=== PATIENT | female | born 1980 | race Two or more races ===

== ENCOUNTER 2021-11-27 07:21 | Inpatient (IN) | payer MEDICAID, OTHER ==
[~2021-11-27] VITALS: Ht 162.6 cm; Wt 94.2 kg
[2021-11-27 09:58] LABS: Albumin 1.8 g/dL (3.4-5.0); Calcium 7.1 mg/dL (8.5-10.1); Potassium 3.1 mmol/L (3.5-5.1)
[2021-11-27 10:01] LABS: BUN/Creatinine Ratio 5.4; Bilirubin, Total 18.9 mg/dL (0.2-1.0); Total Protein 6.6 g/dL (6.4-8.2)
[2021-11-27 10:36] LABS: Basophils # (auto) 0 10 ^3/uL (0-0.2); Basophils % (auto) 0.2 % (0.0-2.0); Eosinophils # (auto) 0.1 10 ^3/uL (0-0.8); Eosinophils % (auto) 0.4 % (0.0-7.0); Hematocrit 35.4 % (36.0-46.0); Hemoglobin 11.9 g/dL (12.2-16.2); Lymphocytes % (auto) 6.1 % (10.0-50.0); Mean Corpuscular Hemoglobin 34.4 pg (28.0-32.0); Mean Corpuscular Hgb Conc. 33.5 g/dL (32.0-36.0); Mean Corpuscular Volume 102.7 fL (80.0-100.0); Monocytes # (auto) 0.9 10 ^3/uL (0-1.3); Monocytes % (auto) 5.7 % (0.0-12.0); Neutrophils # (auto) 13.7 10 ^3/uL (1.6-8.6); Neutrophils % (auto) 87.6 % (37.0-80.0); Nucleated Red Blood Cells % 0.1 %; Red Blood Cells 3.45 10^6/uL (4.0-5.20); Red Cell Distribution Width 14.6 % (11.8-14.3); White Blood Cell 15.6 10^3/uL (4.4-10.8)
[2021-11-27] MEDS ORDERED: SODIUM CHLORIDE 0.9% 1,000 ML IV ONE (11:15)
[2021-11-27 11:29] LABS: Urine Bacteria MOD /hpf (None Seen); Urine Blood Negative /uL (Negative); Urine Mucus FEW (None Seen); Urine Specific Gravity 1.017 (1.001-1.035); Urine WBC 12 /hpf (0 - 5)
[2021-11-27 12:27] LABS: INR 2.07 (0.9-1.15); Partial Thromboplastin Time 44.8 sec (24.6-33.4)
[2021-11-27] MEDS ORDERED: ALBUMIN 25% 100 ML IV ONE (13:45)
[2021-11-27] MEDS ORDERED: LACTULOSE 20Gm/30ML SOLN PO ONE (13:45)
[2021-11-27] MEDS: FUROSEMIDE 40 MG/4 ML VIAL IV ONE ×2 (13:45→22:28)
[2021-11-27] MEDS: MAGNESIUM SULFATE 1GM/100ML 100 ML IV SCH ×5 (13:45→23:39)
[2021-11-27] MEDS ORDERED: POTASSIUM EFFERVESENT TAB 25 MEQ PO ONE (16:00)
[2021-11-27] MEDS ORDERED: LORazepam 2MG/ML-1ML VIAL IV PRN (17:30)
[2021-11-27] MEDS: SPIRONOLACTONE 25 MG TAB PO ONE (17:45)
[2021-11-27 18:24] LABS: INR 2.02 (0.9-1.15)
[2021-11-27 18:36] LABS: Cholesterol 86 mg/dL (< 200); HDL Cholesterol 9 mg/dL (40-59); LDL Cholesterol 78 mg/dL (< 100); Triglycerides 289 mg/dL (< 150)
[2021-11-27 19:46] LABS: Alcohol, Urine < 3.0 mg/dL (0-10); Amphetamine Screen, Urine NEGATIVE (NEGATIVE); Barbiturate Scree,Urine NEGATIVE (NEGATIVE); Benzodiazephine Screen, Urine NEGATIVE (NEGATIVE); Cannabinoid Screen, Urine NEGATIVE (NEGATIVE); Cocaine Screen, Urine NEGATIVE (NEGATIVE); Opiate Scree,Urine NEGATIVE (NEGATIVE); Phencyclidine Screen, Urine NEGATIVE (NEGATIVE)
[2021-11-27 21:20] VITALS: BP 102/58
[2021-11-27] MEDS: SODIUM CHLORIDE 0.9% 1,000 ML IV SCH (22:25)
[2021-11-27] MEDS: MORPHINE SULFATE INJ 2 MG/ml SYRG IV PRN (22:28)
[2021-11-27] MEDS: FOLIC ACID 1 MG, MULTIPLE VITAMIN 10 ML, MAGNESIUM SULF SDV 50% 8 MEQ, THIAMINE INJ 100... INJ SCH ×5 (22:28)
[2021-11-28] VITALS (8 sets, daily range): BP systolic 92–112; BP diastolic 46–70
[2021-11-28] MEDS: MAGNESIUM SULFATE 1GM/100ML 100 ML IV SCH ×2 (00:38→01:36)
[2021-11-28] MEDS: ALBUMIN 25% 50 ML IV SCH ×3 (02:27→17:37)
[2021-11-28] MEDS: SODIUM CHLORIDE 0.9% 1,000 ML IV SCH (03:30)
[2021-11-28 06:03] LABS: Calcium 6.8 mg/dL (8.5-10.1); Eosinophils # (auto) 0.1 10 ^3/uL (0-0.8); Hemoglobin 10.2 g/dL (12.2-16.2); White Blood Cell 13.3 10^3/uL (4.4-10.8)
[2021-11-28 06:06] LABS: Basophils # (auto) 0 10 ^3/uL (0-0.2); Basophils % (auto) 0.3 % (0.0-2.0); Eosinophils % (auto) 0.4 % (0.0-7.0); Hematocrit 29.5 % (36.0-46.0); Lymphocytes # (auto) 0.9 10 ^3/uL (0.4-5.4); Lymphocytes % (auto) 7.1 % (10.0-50.0); Mean Corpuscular Hgb Conc. 34.5 g/dL (32.0-36.0); Mean Corpuscular Volume 101.4 fL (80.0-100.0); Monocytes # (auto) 1.2 10 ^3/uL (0-1.3); Monocytes % (auto) 9.1 % (0.0-12.0); Neutrophils # (auto) 11.1 10 ^3/uL (1.6-8.6); Neutrophils % (auto) 83.1 % (37.0-80.0); Red Cell Distribution Width 14.8 % (11.8-14.3)
[2021-11-28 06:09] LABS: Albumin 2.1 g/dL (3.4-5.0); BUN/Creatinine Ratio 8.7; Bilirubin, Total 17.7 mg/dL (0.2-1.0); Total Protein 5.8 g/dL (6.4-8.2)
[2021-11-28 06:42] LABS: Potassium 2.4 mmol/L (3.5-5.1)
[2021-11-28] MEDS ORDERED: FUROSEMIDE 20 MG/2 ML VIAL IV SCH (10:00)
[2021-11-28] MEDS: POTASSIUM CHL 20MEQ/100ML 100 ML IV SCH ×3 (10:13→14:07)
[2021-11-28] MEDS: POTASSIUM CHL 10 Meq TABLET PO SCH (10:13)
[2021-11-28] MEDS: chlordiazePOXIDE HCL 5 MG CAP PO PRN ×2 (10:44→16:00)
[2021-11-28] MEDS ORDERED: PHYTONADIONE (VIT K)10 MG/ML 1ML VIAL IV ONE (10:45)
[2021-11-28 13:46] LABS: Calcium 7.3 mg/dL (8.5-10.1)
[2021-11-28 13:48] LABS: BUN/Creatinine Ratio 7.7
[2021-11-28 13:55] LABS: Potassium 2.8 mmol/L (3.5-5.1)
[2021-11-28] MEDS: MORPHINE SULFATE INJ 2 MG/ml SYRG IV PRN ×2 (16:00→21:39)
[2021-11-28] MEDS: FOLIC ACID 1 MG, MULTIPLE VITAMIN 10 ML, MAGNESIUM SULF SDV 50% 8 MEQ, THIAMINE INJ 100... INJ SCH ×5 (16:04)
[2021-11-28 22:59] LABS: Magnesium 2.9 mg/dL (1.6-2.6)
[2021-11-28 23:37] LABS: Potassium 2.9 mmol/L (3.5-5.1)
[2021-11-29] VITALS (14 sets, daily range): BP systolic 93–125; BP diastolic 61–77
[2021-11-29] MEDS ORDERED: POTASSIUM CHL 20MEQ/100ML 100 ML IV ONE (00:15)
[2021-11-29] MEDS ORDERED: POTASSIUM CHL 20 Meq TABLET PO ONE (00:15)
[2021-11-29] MEDS: chlordiazePOXIDE HCL 5 MG CAP PO PRN ×3 (02:41→21:13)
[2021-11-29 06:18] LABS: Albumin 2.5 g/dL (3.4-5.0); Potassium 3.3 mmol/L (3.5-5.1)
[2021-11-29 06:21] LABS: BUN/Creatinine Ratio 8.3; Bilirubin, Total 19.4 mg/dL (0.2-1.0); Total Protein 6.3 g/dL (6.4-8.2)
[2021-11-29 06:30] LABS: Basophils # (auto) 0.1 10 ^3/uL (0-0.2); Basophils % (auto) 0.5 % (0.0-2.0); Hemoglobin 10.3 g/dL (12.2-16.2)
[2021-11-29 06:38] LABS: Eosinophils # (auto) 0.1 10 ^3/uL (0-0.8); Eosinophils % (auto) 0.5 % (0.0-7.0); Hematocrit 30.1 % (36.0-46.0); Lymphocytes # (auto) 1.1 10 ^3/uL (0.4-5.4); Lymphocytes % (auto) 7.7 % (10.0-50.0); Mean Corpuscular Hemoglobin 35.2 pg (28.0-32.0); Mean Corpuscular Hgb Conc. 34.1 g/dL (32.0-36.0); Mean Corpuscular Volume 103.3 fL (80.0-100.0); Monocytes # (auto) 1.4 10 ^3/uL (0-1.3); Monocytes % (auto) 9.9 % (0.0-12.0); Neutrophils # (auto) 11.3 10 ^3/uL (1.6-8.6); Neutrophils % (auto) 81.4 % (37.0-80.0); Red Blood Cells 2.92 10^6/uL (4.0-5.20); Red Cell Distribution Width 15.5 % (11.8-14.3); White Blood Cell 13.9 10^3/uL (4.4-10.8)
[2021-11-29 07:14] LABS: INR 1.44 (0.9-1.15)
[2021-11-29] MEDS: POTASSIUM CHL 10 Meq TABLET PO SCH (09:44)
[2021-11-29] MEDS: MORPHINE SULFATE INJ 2 MG/ml SYRG IV PRN ×3 (10:23→21:13)
[2021-11-29 12:44] LABS: Hepatitis A Ab IgM Negative
[2021-11-29 12:45] LABS: Hepatitis B Core IgM Negative
[2021-11-29 12:47] LABS: Hepatitis C Antibody Negative (Negative)
[2021-11-29] MEDS: FOLIC ACID 1 MG, MULTIPLE VITAMIN 10 ML, MAGNESIUM SULF SDV 50% 8 MEQ, THIAMINE INJ 100... INJ SCH ×5 (12:49)
[2021-11-29] MEDS ORDERED: cefTRIAXone 1GM/50ML D5W 50 ML IV ONE (13:00)
[2021-11-29] MEDS: PANTOPRAZOLE 40 MG TAB PO SCH (17:16)
[2021-11-30] MEDS: MORPHINE SULFATE INJ 2 MG/ml SYRG IV PRN ×4 (03:34→21:23)
[2021-11-30 05:00] VITALS: BP 105/71
[2021-11-30] MEDS: cefTRIAXone 1GM/50ML D5W 50 ML IV SCH (08:46)
[2021-11-30 09:00] VITALS: BP 109/70
[2021-11-30] MEDS: POTASSIUM CHL 10 Meq TABLET PO SCH (09:12)
[2021-11-30] MEDS: PANTOPRAZOLE 40 MG TAB PO SCH ×2 (09:12→21:22)
[2021-11-30] MEDS: FOLIC ACID 1 MG, MULTIPLE VITAMIN 10 ML, MAGNESIUM SULF SDV 50% 8 MEQ, THIAMINE INJ 100... INJ SCH ×5 (12:03)
[2021-11-30 13:04] VITALS: BP 112/71
[2021-11-30 17:04] VITALS: BP 108/69
[2021-11-30] MEDS: chlordiazePOXIDE HCL 5 MG CAP PO PRN (21:22)
[2021-11-30 22:00] VITALS: BP 121/79
[2021-12-01 05:00] VITALS: BP 108/75
[2021-12-01] MEDS: MORPHINE SULFATE INJ 2 MG/ml SYRG IV PRN ×5 (05:51→23:00)
[2021-12-01 08:39] VITALS: BP 104/72
[2021-12-01 08:40] LABS: Eosinophils # (auto) 0.1 10 ^3/uL (0-0.8); Hemoglobin 11.3 g/dL (12.2-16.2); Mean Corpuscular Hemoglobin 34.9 pg (28.0-32.0); Red Blood Cells 3.25 10^6/uL (4.0-5.20)
[2021-12-01 08:42] LABS: Basophils # (auto) 0.1 10 ^3/uL (0-0.2); Basophils % (auto) 0.7 % (0.0-2.0); Eosinophils % (auto) 0.4 % (0.0-7.0); Hematocrit 33.6 % (36.0-46.0); Lymphocytes # (auto) 1.4 10 ^3/uL (0.4-5.4); Lymphocytes % (auto) 8.7 % (10.0-50.0); Mean Corpuscular Hgb Conc. 33.7 g/dL (32.0-36.0); Mean Corpuscular Volume 103.3 fL (80.0-100.0); Monocytes # (auto) 1.3 10 ^3/uL (0-1.3); Monocytes % (auto) 8.3 % (0.0-12.0); Neutrophils # (auto) 13.1 10 ^3/uL (1.6-8.6); Neutrophils % (auto) 81.9 % (37.0-80.0); Nucleated Red Blood Cells % 0.1 %; Red Cell Distribution Width 15.8 % (11.8-14.3); White Blood Cell 16.1 10^3/uL (4.4-10.8)
[2021-12-01 08:56] LABS: Albumin 2.1 g/dL (3.4-5.0); Calcium 7.6 mg/dL (8.5-10.1); Potassium 3.5 mmol/L (3.5-5.1)
[2021-12-01 08:59] LABS: BUN/Creatinine Ratio 4.9; Bilirubin, Total 22.3 mg/dL (0.2-1.0); Total Protein 6.3 g/dL (6.4-8.2)
[2021-12-01] MEDS: cefTRIAXone 1GM/50ML D5W 50 ML IV SCH (09:25)
[2021-12-01] MEDS: chlordiazePOXIDE HCL 5 MG CAP PO PRN ×2 (09:25→20:45)
[2021-12-01] MEDS: POTASSIUM CHL 10 Meq TABLET PO SCH (09:26)
[2021-12-01] MEDS: PANTOPRAZOLE 40 MG TAB PO SCH ×2 (09:26→22:33)
[2021-12-01] MEDS ORDERED: IOHEXOL 300 MG/ML 100ML BOTTLE IJ ONE (11:56)
[2021-12-01 13:15] VITALS: BP 96/64
[2021-12-01] MEDS: FOLIC ACID 1 MG, MULTIPLE VITAMIN 10 ML, MAGNESIUM SULF SDV 50% 8 MEQ, THIAMINE INJ 100... INJ SCH ×5 (13:31)
[2021-12-01] MEDS: SIMETHICONE 40 MG/0.6 ML ORAL DROP PO SCH ×3 (13:32→22:33)
[2021-12-01 16:44] VITALS: BP 102/65
[2021-12-01 22:00] VITALS: BP 103/69
[2021-12-02] MEDS: SIMETHICONE 40 MG/0.6 ML ORAL DROP PO SCH ×4 (05:46→22:01)
[2021-12-02] MEDS: MORPHINE SULFATE INJ 2 MG/ml SYRG IV PRN ×4 (05:55→22:07)
[2021-12-02] MEDS: chlordiazePOXIDE HCL 5 MG CAP PO PRN (06:08)
[2021-12-02] MEDS ORDERED: PHYTONADIONE (VIT K)10 MG/ML 1ML VIAL SUBCUT ONE (08:45)
[2021-12-02 08:59] VITALS: BP 108/67
[2021-12-02] MEDS: cefTRIAXone 1GM/50ML D5W 50 ML IV SCH (09:00)
[2021-12-02] MEDS: POTASSIUM CHL 10 Meq TABLET PO SCH (10:00)
[2021-12-02] MEDS: PANTOPRAZOLE 40 MG TAB PO SCH ×2 (10:00→22:00)
[2021-12-02 10:21] LABS: INR 1.53 (0.9-1.15); Partial Thromboplastin Time 44.1 sec (24.6-33.4)
[2021-12-02] MEDS: FOLIC ACID 1 MG, MULTIPLE VITAMIN 10 ML, MAGNESIUM SULF SDV 50% 8 MEQ, THIAMINE INJ 100... INJ SCH ×5 (12:00)
[2021-12-02 13:44] VITALS: BP 110/70
[2021-12-02] MEDS: traMADol HCL 50 MG TAB PO PRN (13:55)
[2021-12-02] MEDS: metroNIDAZOLE 500MG/100ML 100 ML IV SCH ×2 (15:05→22:00)
[2021-12-02 16:21] VITALS: BP 111/73
[2021-12-02 21:41] VITALS: BP 103/69
[2021-12-03] MEDS: MORPHINE SULFATE INJ 2 MG/ml SYRG IV PRN ×4 (03:42→21:29)
[2021-12-03 05:00] VITALS: BP 103/68
[2021-12-03] MEDS: metroNIDAZOLE 500MG/100ML 100 ML IV SCH ×3 (05:37→22:18)
[2021-12-03] MEDS: SIMETHICONE 40 MG/0.6 ML ORAL DROP PO SCH ×4 (05:37→22:00)
[2021-12-03] MEDS ORDERED: GADOTERATE MEG 10 MMOL/20ml INJ (0.5MMOL/ml) IV ONE (08:41)
[2021-12-03] MEDS: POTASSIUM CHL 10 Meq TABLET PO SCH (08:43)
[2021-12-03] MEDS: cefTRIAXone 1GM/50ML D5W 50 ML IV SCH (08:43)
[2021-12-03] MEDS: PANTOPRAZOLE 40 MG TAB PO SCH ×2 (08:44→22:18)
[2021-12-03 09:00] VITALS: BP 104/69
[2021-12-03] MEDS: FOLIC ACID 1 MG, MULTIPLE VITAMIN 10 ML, MAGNESIUM SULF SDV 50% 8 MEQ, THIAMINE INJ 100... INJ SCH ×5 (12:00)
[2021-12-03 13:15] VITALS: BP 94/52
[2021-12-03] MEDS: PENTOXIFYLLINE 400 MG ER TAB PO SCH ×2 (16:53→22:19)
[2021-12-03 17:09] VITALS: BP 108/54
[2021-12-03 22:00] VITALS: BP_SYST 112
[2021-12-04] MEDS: traMADol HCL 50 MG TAB PO PRN ×2 (00:20→11:14)
[2021-12-04] MEDS: MORPHINE SULFATE INJ 2 MG/ml SYRG IV PRN ×3 (03:42→15:45)
[2021-12-04 05:59] VITALS: BP 105/69
[2021-12-04] MEDS: SIMETHICONE 40 MG/0.6 ML ORAL DROP PO SCH ×4 (06:00→23:29)
[2021-12-04] MEDS: PENTOXIFYLLINE 400 MG ER TAB PO SCH ×3 (06:28→23:30)
[2021-12-04] MEDS: metroNIDAZOLE 500MG/100ML 100 ML IV SCH ×3 (06:28→23:29)
[2021-12-04 09:00] VITALS: BP 109/70
[2021-12-04] MEDS: cefTRIAXone 1GM/50ML D5W 50 ML IV SCH (09:01)
[2021-12-04] MEDS: POTASSIUM CHL 10 Meq TABLET PO SCH (09:02)
[2021-12-04] MEDS: PANTOPRAZOLE 40 MG TAB PO SCH ×2 (09:02→23:29)
[2021-12-04] MEDS: ONDANSETRON HCL 4 MG/2 ML VIAL IV PRN (09:03)
[2021-12-04] MEDS: chlordiazePOXIDE HCL 5 MG CAP PO PRN (11:14)
[2021-12-04 13:00] VITALS: BP 104/72
[2021-12-04] MEDS: FOLIC ACID 1 MG, MULTIPLE VITAMIN 10 ML, MAGNESIUM SULF SDV 50% 8 MEQ, THIAMINE INJ 100... INJ SCH ×5 (14:27)
[2021-12-04 17:00] VITALS: BP 111/67
[2021-12-05] MEDS: MORPHINE SULFATE INJ 2 MG/ml SYRG IV PRN ×4 (00:03→18:03)
[2021-12-05 06:08] VITALS: BP 102/60
[2021-12-05] MEDS: metroNIDAZOLE 500MG/100ML 100 ML IV SCH ×3 (06:15→22:52)
[2021-12-05] MEDS: PENTOXIFYLLINE 400 MG ER TAB PO SCH ×3 (06:16→22:53)
[2021-12-05] MEDS: SIMETHICONE 40 MG/0.6 ML ORAL DROP PO SCH ×4 (06:16→22:53)
[2021-12-05 06:41] LABS: Albumin 1.9 g/dL (3.4-5.0); Calcium 8.2 mg/dL (8.5-10.1); Potassium 4.2 mmol/L (3.5-5.1)
[2021-12-05 06:44] LABS: BUN/Creatinine Ratio 13.2
[2021-12-05 06:58] LABS: Bilirubin, Total 20.8 mg/dL (0.2-1.0); Total Protein 5.6 g/dL (6.4-8.2)
[2021-12-05 09:00] VITALS: BP 98/50
[2021-12-05] MEDS: cefTRIAXone 1GM/50ML D5W 50 ML IV SCH (10:30)
[2021-12-05] MEDS: PANTOPRAZOLE 40 MG TAB PO SCH ×2 (10:30→22:53)
[2021-12-05] MEDS: POTASSIUM CHL 10 Meq TABLET PO SCH (10:31)
[2021-12-05] MEDS: ONDANSETRON HCL 4 MG/2 ML VIAL IV PRN ×2 (10:39→18:02)
[2021-12-05 13:00] VITALS: BP 94/59
[2021-12-05] MEDS: FOLIC ACID 1 MG, MULTIPLE VITAMIN 10 ML, MAGNESIUM SULF SDV 50% 8 MEQ, THIAMINE INJ 100... INJ SCH ×5 (13:13)
[2021-12-05 17:00] VITALS: BP 122/60
[2021-12-06 00:15] VITALS: BP 101/61
[2021-12-06] MEDS: MORPHINE SULFATE INJ 2 MG/ml SYRG IV PRN (02:24)
[2021-12-06] MEDS: SIMETHICONE 40 MG/0.6 ML ORAL DROP PO SCH ×2 (06:17→13:20)
[2021-12-06] MEDS: PENTOXIFYLLINE 400 MG ER TAB PO SCH ×2 (06:17→13:20)
[2021-12-06] MEDS: metroNIDAZOLE 500MG/100ML 100 ML IV SCH ×2 (06:17→13:20)
[2021-12-06 06:18] VITALS: BP_SYST 139; BP_SYST 95; BP_DIAS 57; BP_DIAS 59
[2021-12-06 09:00] VITALS: BP 99/64
[2021-12-06] MEDS ORDERED: KETOROLAC TROMETH 30 MG/ML 1ML VIAL IV PRN (09:30)
[2021-12-06] MEDS: cefTRIAXone 1GM/50ML D5W 50 ML IV SCH (10:02)
[2021-12-06] MEDS: POTASSIUM CHL 10 Meq TABLET PO SCH (10:02)
[2021-12-06] MEDS: PANTOPRAZOLE 40 MG TAB PO SCH (10:02)
[2021-12-06 13:00] VITALS: BP 99/65
[2021-12-06] MEDS: FOLIC ACID 1 MG, MULTIPLE VITAMIN 10 ML, MAGNESIUM SULF SDV 50% 8 MEQ, THIAMINE INJ 100... INJ SCH ×5 (15:39)
== END 2021-12-06 17:20 | disposition left against medical advice (07) | DRG 871 ==
LOC: EDBD 07:21 → ER 07:21 → OVERFLOW 17:16 → EDBD 17:16 → CENTRAL 21:20
PROVIDERS: ADMIT Registered Nurse; ATTEND Family Medicine
PROC: 30233K1 Transfusion of Nonautologous Frozen Plasma into Peripheral Vein, Percutaneous Approach (ICD-10-PCS; principal; 2021-11-28)
DX: A41.9 Sepsis, unspecified organism (principal); E43 Unspecified severe protein-calorie malnutrition; D68.9 Coagulation defect, unspecified; E87.1 Hypo-osmolality and hyponatremia; J90 Pleural effusion, not elsewhere classified; E72.4 Disorders of ornithine metabolism; F10.139 Alcohol abuse with withdrawal, unspecified; K70.31 Alcoholic cirrhosis of liver with ascites; D75.89 Other specified diseases of blood and blood-forming organs; E83.42 Hypomagnesemia; E87.6 Hypokalemia; K44.9 Diaphragmatic hernia without obstruction or gangrene; Z20.822 Contact with and (suspected) exposure to COVID-19; E80.6 Other disorders of bilirubin metabolism; R74.01 Elevation of levels of liver transaminase levels; F12.90 Cannabis use, unspecified, uncomplicated; Y90.9 Presence of alcohol in blood, level not specified; D72.829 Elevated white blood cell count, unspecified; R97.1 Elevated cancer antigen 125 [CA 125]; Z53.29 Procedure and treatment not carried out because of patient's decision for other reasons; Z86.32 Personal history of gestational diabetes; Z79.899 Other long term (current) drug therapy; Z90.710 Acquired absence of both cervix and uterus; Z68.35 Body mass index [BMI] 35.0-35.9, adult
CPT/HCPCS: 36415; 36430; 71046; 71275; 72195; 74176; 74178; 74181; 76700; 76856; 80048; 80053; 80061; 80074; 80307; 80320; 81001; 82105; 82140; 82150; 82378; 83036; 83690; 83735; 84132; 84484; 84702; 85025; 85610; 85730; 86304; 86850; 86900; 86901; 87040; 93005; 96361; 96374; G0378; J0696; J1885; J2405; J3430; J3480; J3490; P9047

== ENCOUNTER 2022-04-28 | Inpatient (IN) | payer MEDICAID ==
[~2022-04-28] VITALS: Ht 165.1 cm; Wt 79.6 kg
[2022-04-28] MEDS ORDERED: HYDROmorphone HCL 2 MG/ML VL/or syr IV ONE (09:00)
[2022-04-28] MEDS ORDERED: ONDANSETRON HCL 4 MG/2 ML VIAL IV ONE (09:00)
[2022-04-28 09:17] LABS: Basophils # (auto) 0 10 ^3/uL (0-0.2); Basophils % (auto) 0.4 % (0.0-2.0); Eosinophils # (auto) 0 10 ^3/uL (0-0.8); Eosinophils % (auto) 0.7 % (0.0-7.0); Hematocrit 33.8 % (36.0-46.0); Hemoglobin 11.2 g/dL (12.2-16.2); Lymphocytes # (auto) 1.6 10 ^3/uL (0.4-5.4); Lymphocytes % (auto) 33.4 % (10.0-50.0); Mean Corpuscular Hemoglobin 33.8 pg (28.0-32.0); Mean Corpuscular Hgb Conc. 33.3 g/dL (32.0-36.0); Mean Corpuscular Volume 101.4 fL (80.0-100.0); Monocytes # (auto) 0.4 10 ^3/uL (0-1.3); Monocytes % (auto) 7.9 % (0.0-12.0); Neutrophils # (auto) 2.8 10 ^3/uL (1.6-8.6); Neutrophils % (auto) 57.6 % (37.0-80.0); Nucleated Red Blood Cells % 0.1 %; Red Blood Cells 3.33 10^6/uL (4.0-5.20); Red Cell Distribution Width 15.6 % (11.8-14.3); White Blood Cell 4.8 10^3/uL (4.4-10.8)
[2022-04-28 09:32] LABS: Albumin 3.1 g/dL (3.4-5.0); Calcium 8.6 mg/dL (8.5-10.1); Potassium 3.8 mmol/L (3.5-5.1)
[2022-04-28 09:35] LABS: BUN/Creatinine Ratio 22.7; Bilirubin, Total 3.4 mg/dL (0.2-1.0)
[2022-04-28 11:57] LABS: INR 1.27 (0.9-1.15)
[2022-04-28 12:16] LABS: Hematocrit 33.1 % (36.0-46.0); Hemoglobin 11.2 g/dL (12.2-16.2)
[2022-04-28] MEDS: SODIUM CHLORIDE 0.9% 1,000 ML IV SCH (14:00)
[2022-04-28] MEDS: metroNIDAZOLE 500MG/100ML 100 ML IV SCH ×2 (14:12→22:17)
[2022-04-28] MEDS: FOLIC ACID 1 MG, MULTIPLE VITAMIN 10 ML, MAGNESIUM SULF SDV 50% 8 MEQ, THIAMINE INJ 100... INJ SCH ×5 (14:18)
[2022-04-28] MEDS ORDERED: OMEP20TA PO (16:51)
[2022-04-28] MEDS ORDERED: FURO40TA4 PO (16:51)
[2022-04-28] MEDS ORDERED: SPIR100T4 PO (16:51)
[2022-04-28] MEDS: ONDANSETRON HCL 4 MG/2 ML VIAL IV PRN (17:14)
[2022-04-28] MEDS: MORPHINE SULFATE INJ 2 MG/ml SYRG IV PRN ×2 (18:08→23:33)
[2022-04-28 18:19] LABS: Hematocrit 31.9 % (36.0-46.0); Hemoglobin 10.7 g/dL (12.2-16.2)
[2022-04-28 18:32] LABS: Urine Bacteria FEW /hpf (None Seen); Urine Blood Negative /uL (Negative); Urine Hyaline Cast FEW /lpf (0 - 2); Urine Mucus FEW (None Seen); Urine Specific Gravity 1.018 (1.001-1.035); Urine WBC 13 /hpf (0 - 5)
[2022-04-28 22:00] VITALS: BP 104/65
[2022-04-28] MEDS: PANTOPRAZOLE 40 MG/10 ML VIAL INJ IV SCH (22:16)
[2022-04-28 22:53] VITALS: BP 121/76
[2022-04-29 00:59] LABS: Hematocrit 31.5 % (36.0-46.0); Hemoglobin 10.3 g/dL (12.2-16.2)
[2022-04-29] MEDS: SODIUM CHLORIDE 0.9% 1,000 ML IV SCH (01:33)
[2022-04-29 05:00] VITALS: BP 105/50
[2022-04-29 06:05] LABS: Basophils # (auto) 0 10 ^3/uL (0-0.2); Basophils % (auto) 0.5 % (0.0-2.0); Eosinophils # (auto) 0.1 10 ^3/uL (0-0.8); Eosinophils % (auto) 1.3 % (0.0-7.0); Hematocrit 30.3 % (36.0-46.0); Hemoglobin 10.4 g/dL (12.2-16.2); Lymphocytes # (auto) 1.8 10 ^3/uL (0.4-5.4); Lymphocytes % (auto) 33.7 % (10.0-50.0); Mean Corpuscular Hemoglobin 34.9 pg (28.0-32.0); Mean Corpuscular Hgb Conc. 34.5 g/dL (32.0-36.0); Mean Corpuscular Volume 101.3 fL (80.0-100.0); Monocytes # (auto) 0.5 10 ^3/uL (0-1.3); Monocytes % (auto) 8.8 % (0.0-12.0); Neutrophils % (auto) 55.7 % (37.0-80.0); Nucleated Red Blood Cells % 0.1 %; Red Blood Cells 2.99 10^6/uL (4.0-5.20); Red Cell Distribution Width 15.4 % (11.8-14.3); White Blood Cell 5.4 10^3/uL (4.4-10.8)
[2022-04-29] MEDS: metroNIDAZOLE 500MG/100ML 100 ML IV SCH (06:11)
[2022-04-29 06:40] LABS: Potassium 3.7 mmol/L (3.5-5.1)
[2022-04-29 06:57] LABS: Albumin 2.4 g/dL (3.4-5.0); Bilirubin, Total 3.7 mg/dL (0.2-1.0); Calcium 8.4 mg/dL (8.5-10.1); Total Protein 5.6 g/dL (6.4-8.2)
[2022-04-29 09:00] VITALS: BP 100/63
[2022-04-29] MEDS ORDERED: PANTOPRAZOLE 40 MG/10 ML VIAL INJ IV SCH (10:00)
[2022-04-29] MEDS: cefTRIAXone 1GM/50ML D5W 50 ML IV SCH (10:30)
[2022-04-29] MEDS: PANTOPRAZOLE 40 MG/10 ML VIAL INJ IV SCH (10:30)
[2022-04-29] MEDS: MORPHINE SULFATE INJ 2 MG/ml SYRG IV PRN ×3 (10:32→23:41)
[2022-04-29 12:20] LABS: Hematocrit 31.3 % (36.0-46.0); Hemoglobin 10.1 g/dL (12.2-16.2)
[2022-04-29] MEDS: FOLIC ACID 1 MG, MULTIPLE VITAMIN 10 ML, MAGNESIUM SULF SDV 50% 8 MEQ, THIAMINE INJ 100... INJ SCH ×5 (12:21)
[2022-04-29 13:00] VITALS: BP 98/65
[2022-04-29 17:00] VITALS: BP 91/53
[2022-04-29 18:20] LABS: Hematocrit 29.4 % (36.0-46.0)
[2022-04-29 18:27] LABS: Hemoglobin 9.9 g/dL (12.2-16.2)
[2022-04-29 22:00] VITALS: BP 98/60
[2022-04-30 05:00] VITALS: BP 86/48
[2022-04-30] MEDS ORDERED: DOCUSATE SOD 100 MG CAP PO PRN (06:45)
[2022-04-30 06:55] LABS: Basophils # (auto) 0 10 ^3/uL (0-0.2); Basophils % (auto) 0.4 % (0.0-2.0); Eosinophils # (auto) 0.1 10 ^3/uL (0-0.8); Eosinophils % (auto) 1.4 % (0.0-7.0); Hematocrit 31.2 % (36.0-46.0); Hemoglobin 10.6 g/dL (12.2-16.2); Lymphocytes # (auto) 1.7 10 ^3/uL (0.4-5.4); Lymphocytes % (auto) 36.6 % (10.0-50.0); Mean Corpuscular Hemoglobin 33.7 pg (28.0-32.0); Mean Corpuscular Hgb Conc. 33.9 g/dL (32.0-36.0); Mean Corpuscular Volume 99.3 fL (80.0-100.0); Monocytes # (auto) 0.4 10 ^3/uL (0-1.3); Monocytes % (auto) 9.1 % (0.0-12.0); Neutrophils # (auto) 2.5 10 ^3/uL (1.6-8.6); Neutrophils % (auto) 52.5 % (37.0-80.0); Nucleated Red Blood Cells % 0.3 %; Red Blood Cells 3.14 10^6/uL (4.0-5.20); Red Cell Distribution Width 15.4 % (11.8-14.3); White Blood Cell 4.7 10^3/uL (4.4-10.8)
[2022-04-30 07:03] LABS: BUN/Creatinine Ratio 15.6; Calcium 8.1 mg/dL (8.5-10.1); Potassium 3.5 mmol/L (3.5-5.1)
[2022-04-30 09:33] VITALS: BP 98/62
[2022-04-30] MEDS: cefTRIAXone 1GM/50ML D5W 50 ML IV SCH (09:40)
[2022-04-30] MEDS: MORPHINE SULFATE INJ 2 MG/ml SYRG IV PRN ×2 (09:52→19:10)
[2022-04-30 12:50] VITALS: BP 94/54
[2022-04-30] MEDS: FOLIC ACID 1 MG, MULTIPLE VITAMIN 10 ML, MAGNESIUM SULF SDV 50% 8 MEQ, THIAMINE INJ 100... INJ SCH ×5 (13:05)
[2022-04-30 16:34] VITALS: BP 102/67
[2022-05-01 05:00] VITALS: BP 96/60
[2022-05-01] MEDS: MORPHINE SULFATE INJ 2 MG/ml SYRG IV PRN ×2 (06:55→20:23)
[2022-05-01 10:00] VITALS: BP 108/69
[2022-05-01] MEDS: cefTRIAXone 1GM/50ML D5W 50 ML IV SCH (10:11)
[2022-05-01] MEDS: FOLIC ACID 1 MG, MULTIPLE VITAMIN 10 ML, MAGNESIUM SULF SDV 50% 8 MEQ, THIAMINE INJ 100... INJ SCH ×5 (14:33)
[2022-05-01] MEDS: ONDANSETRON HCL 4 MG/2 ML VIAL IV PRN (20:23)
[2022-05-01 22:00] VITALS: BP 86/48
[2022-05-02 05:00] VITALS: BP 104/64
[2022-05-02 05:45] LABS: INR 1.37 (0.9-1.15); Partial Thromboplastin Time 37.5 sec (24.6-33.4)
[2022-05-02] MEDS: ONDANSETRON HCL 4 MG/2 ML VIAL IV PRN ×2 (05:59→13:44)
[2022-05-02] MEDS: MORPHINE SULFATE INJ 2 MG/ml SYRG IV PRN ×2 (05:59→13:44)
[2022-05-02] MEDS: cefTRIAXone 1GM/50ML D5W 50 ML IV SCH (08:27)
[2022-05-02] MEDS: LORazepam 2MG/ML-1ML VIAL IV PRN ×2 (08:32→17:08)
[2022-05-02 08:57] VITALS: BP 115/73
[2022-05-02] MEDS ORDERED: LACTULOSE 20Gm/30ML SOLN PO ONE (11:30)
[2022-05-02] MEDS ORDERED: CEFD300C2 PO (11:33)
[2022-05-02] MEDS: FOLIC ACID 1 MG, MULTIPLE VITAMIN 10 ML, MAGNESIUM SULF SDV 50% 8 MEQ, THIAMINE INJ 100... INJ SCH ×5 (11:50)
[2022-05-02 12:59] VITALS: BP 93/44
[2022-05-02 15:39] VITALS: BP 102/43
[2022-05-04] MEDS ORDERED: MORPHINE SULFATE 4 MG/ML SYR/VIAL IM ONE (20:45)
[2022-05-04] MEDS ORDERED: ONDANSETRON ODT 4 MG TAB PO ONE (20:45)
== END 2022-05-02 17:45 | disposition home or self-care (01) | DRG 280 ==
LOC: EDBD → ER → TELE 11:10 → TELE-EAST 21:45
PROVIDERS: ADMIT Nurse Practitioner Family; ATTEND Nurse Practitioner Acute Care
DX: K70.30 Alcoholic cirrhosis of liver without ascites (principal); D69.6 Thrombocytopenia, unspecified; K81.0 Acute cholecystitis; E88.09 Other disorders of plasma-protein metabolism, not elsewhere classified; N30.90 Cystitis, unspecified without hematuria; K92.2 Gastrointestinal hemorrhage, unspecified; D64.9 Anemia, unspecified; F41.1 Generalized anxiety disorder; Z20.822 Contact with and (suspected) exposure to COVID-19; Z71.41 Alcohol abuse counseling and surveillance of alcoholic
CPT/HCPCS: 36415; 74176; 76705; 80048; 80053; 81001; 82140; 83690; 84484; 85014; 85018; 85025; 85610; 85730; 86850; 86900; 86901; 87086; 87426; 96365; 96368; 96375; C9113; G0378; J0696; J2405; J3490

== ENCOUNTER 2022-05-04 16:54 | Inpatient (IN) | payer MEDICAID ==
[~2022-05-04] VITALS: Ht 160 cm; Wt 77.2 kg
[~2022-05-04 16:54] MED LIST: CEFD300C2 PO; FURO40TA4 PO; OMEP20TA PO; SPIR100T4 PO
[2022-05-04] MEDS ORDERED: ONDANSETRON ODT 4 MG TAB PO ONE (21:15)
[2022-05-04] MEDS ORDERED: MORPHINE SULFATE 4 MG/ML SYR/VIAL IM ONE (21:15)
[2022-05-04 21:37] LABS: Basophils # (auto) 0 10 ^3/uL (0-0.2); Basophils % (auto) 0.5 % (0.0-2.0); Eosinophils # (auto) 0.1 10 ^3/uL (0-0.8); Eosinophils % (auto) 1.2 % (0.0-7.0); Hemoglobin 11.3 g/dL (12.2-16.2); Lymphocytes # (auto) 2.4 10 ^3/uL (0.4-5.4); Lymphocytes % (auto) 34.5 % (10.0-50.0); Mean Corpuscular Hemoglobin 33.7 pg (28.0-32.0); Mean Corpuscular Hgb Conc. 33.4 g/dL (32.0-36.0); Monocytes # (auto) 0.6 10 ^3/uL (0-1.3); Monocytes % (auto) 8.7 % (0.0-12.0); Neutrophils # (auto) 3.8 10 ^3/uL (1.6-8.6); Neutrophils % (auto) 55.1 % (37.0-80.0); Nucleated Red Blood Cells % 0.2 %; Red Blood Cells 3.36 10^6/uL (4.0-5.20); Red Cell Distribution Width 17.3 % (11.8-14.3)
[2022-05-04 21:52] LABS: Albumin 2.8 g/dL (3.4-5.0); BUN/Creatinine Ratio 10.6; Calcium 8.4 mg/dL (8.5-10.1); INR 1.24 (0.9-1.15); Partial Thromboplastin Time 31.5 sec (24.6-33.4); Potassium 3.4 mmol/L (3.5-5.1)
[2022-05-04 21:55] LABS: Bilirubin, Total 2.4 mg/dL (0.2-1.0)
[2022-05-04] MEDS ORDERED: SODIUM CHLORIDE 0.9% 1,000 ML IV ONE (22:00)
[2022-05-04] MEDS ORDERED: LORazepam 0.5 MG TAB PO ONE (22:45)
[2022-05-04] MEDS ORDERED: HYDROmorphone HCL 2 MG/ML VL/or syr IV ONE (23:00)
[2022-05-05] MEDS ORDERED: SODIUM CHLORIDE 0.9% 500 ML IV ONE (00:30)
[2022-05-05] MEDS ORDERED: AZITHROMYCIN 500MG/ 250ML 250 ML IV ONE (00:30)
[2022-05-05] MEDS ORDERED: cefTRIAXone 1GM/50ML D5W 50 ML IV ONE (00:30)
[2022-05-05] MEDS ORDERED: TEMAZEPAM 15 MG CAP PO PRN (03:45)
[2022-05-05] MEDS ORDERED: POTASSIUM CHL 20 Meq TABLET PO ONE (03:45)
[2022-05-05] MEDS: ONDANSETRON HCL 4 MG/2 ML VIAL IV PRN ×2 (04:21→10:42)
[2022-05-05] MEDS: MORPHINE SULFATE INJ 2 MG/ml SYRG IV PRN ×2 (04:23→10:43)
[2022-05-05] MEDS ORDERED: chlordiazePOXIDE HCL 25 MG CAP PO PRN (07:00)
[2022-05-05] MEDS: FUROSEMIDE 40 MG TAB PO SCH (10:41)
[2022-05-05] MEDS: PANTOPRAZOLE 40 MG TAB PO SCH (10:41)
[2022-05-05] MEDS: SPIRONOLACTONE 25 MG TAB PO SCH (10:42)
[2022-05-05] MEDS ORDERED: FOLIC ACID 1 MG, MULTIPLE VITAMIN 10 ML, MAGNESIUM SULF SDV 50% 8 MEQ, THIAMINE INJ 100... INJ SCH ×5 (12:00)
[2022-05-05] MEDS ORDERED: ONDA-144 PO (12:30)
[2022-05-05] MEDS ORDERED: NAP500T PO (12:30)
[2022-05-05] MEDS ORDERED: CYCL-837 PO (12:30)
[2022-05-05 12:55] VITALS: BP 105/64
[2022-05-05 13:04] VITALS: BP 118/66
[2022-05-05] MEDS ORDERED: THIAMINE HCL 100 MG TAB PO ONE (16:15)
[2022-05-05] MEDS ORDERED: LORazepam 0.5 MG TAB PO PRN (16:15)
[2022-05-05 16:36] VITALS: BP 100/68
[2022-05-05] MEDS: LACTULOSE 20Gm/30ML SOLN PO SCH ×2 (18:53→23:26)
[2022-05-05 22:00] VITALS: BP 107/68
[2022-05-05] MEDS ORDERED: AZITHROMYCIN 500MG/ 250ML 250 ML IV SCH (22:00)
[2022-05-06 05:00] VITALS: BP 114/67
[2022-05-06 05:37] LABS: Albumin 2.7 g/dL (3.4-5.0); Calcium 8.4 mg/dL (8.5-10.1); Potassium 3.5 mmol/L (3.5-5.1)
[2022-05-06 05:38] LABS: Basophils # (auto) 0 10 ^3/uL (0-0.2); Basophils % (auto) 0.5 % (0.0-2.0); Eosinophils # (auto) 0.1 10 ^3/uL (0-0.8); Eosinophils % (auto) 1.5 % (0.0-7.0); Hematocrit 31.7 % (36.0-46.0); Hemoglobin 10.8 g/dL (12.2-16.2); Lymphocytes # (auto) 1.9 10 ^3/uL (0.4-5.4); Lymphocytes % (auto) 34.5 % (10.0-50.0); Mean Corpuscular Hemoglobin 33.9 pg (28.0-32.0); Mean Corpuscular Hgb Conc. 34.1 g/dL (32.0-36.0); Mean Corpuscular Volume 99.4 fL (80.0-100.0); Monocytes # (auto) 0.4 10 ^3/uL (0-1.3); Monocytes % (auto) 7.9 % (0.0-12.0); Neutrophils % (auto) 55.6 % (37.0-80.0); Nucleated Red Blood Cells % 0.1 %; Red Blood Cells 3.19 10^6/uL (4.0-5.20); Red Cell Distribution Width 16.6 % (11.8-14.3); White Blood Cell 5.5 10^3/uL (4.4-10.8)
[2022-05-06 05:43] LABS: Bilirubin, Total 4.1 mg/dL (0.2-1.0); Total Protein 6.3 g/dL (6.4-8.2)
[2022-05-06] MEDS: LACTULOSE 20Gm/30ML SOLN PO SCH ×4 (05:46→17:12)
[2022-05-06 09:00] VITALS: BP 102/63
[2022-05-06] MEDS: THIAMINE HCL 100 MG TAB PO SCH (09:56)
[2022-05-06] MEDS: FUROSEMIDE 40 MG TAB PO SCH (09:57)
[2022-05-06] MEDS: MULTIPLE VITAMIN TAB PO SCH (09:57)
[2022-05-06] MEDS: PANTOPRAZOLE 40 MG TAB PO SCH (09:57)
[2022-05-06] MEDS: SPIRONOLACTONE 25 MG TAB PO SCH (09:58)
[2022-05-06] MEDS: ONDANSETRON HCL 4 MG/2 ML VIAL IV PRN (12:18)
[2022-05-06 12:43] VITALS: BP 116/69
[2022-05-06 17:00] VITALS: BP 107/62
[2022-05-06] MEDS: ACETAMINOPHEN 500 MG TAB PO PRN (17:08)
[2022-05-06] MEDS ORDERED: KETOROLAC TROMETH 30 MG/ML 1ML VIAL IV ONE (18:30)
[2022-05-06 22:00] VITALS: BP 108/62
[2022-05-07] VITALS (8 sets, daily range): BP systolic 96–148; BP diastolic 49–75
[2022-05-07] MEDS: ACETAMINOPHEN 500 MG TAB PO PRN ×2 (04:09→17:39)
[2022-05-07] MEDS: LACTULOSE 20Gm/30ML SOLN PO SCH ×3 (05:41→17:39)
[2022-05-07 07:12] LABS: Basophils # (auto) 0 10 ^3/uL (0-0.2); Basophils % (auto) 0.6 % (0.0-2.0); Eosinophils # (auto) 0.1 10 ^3/uL (0-0.8); Eosinophils % (auto) 1.7 % (0.0-7.0); Hematocrit 34.1 % (36.0-46.0); Hemoglobin 11.7 g/dL (12.2-16.2); Lymphocytes # (auto) 1.7 10 ^3/uL (0.4-5.4); Lymphocytes % (auto) 34.2 % (10.0-50.0); Mean Corpuscular Hemoglobin 33.9 pg (28.0-32.0); Mean Corpuscular Hgb Conc. 34.2 g/dL (32.0-36.0); Mean Corpuscular Volume 99.2 fL (80.0-100.0); Monocytes # (auto) 0.4 10 ^3/uL (0-1.3); Monocytes % (auto) 7.6 % (0.0-12.0); Neutrophils # (auto) 2.8 10 ^3/uL (1.6-8.6); Neutrophils % (auto) 55.9 % (37.0-80.0); Nucleated Red Blood Cells % 0.2 %; Red Blood Cells 3.44 10^6/uL (4.0-5.20); Red Cell Distribution Width 16.3 % (11.8-14.3); White Blood Cell 5.1 10^3/uL (4.4-10.8)
[2022-05-07 07:35] LABS: Potassium 3.4 mmol/L (3.5-5.1)
[2022-05-07 07:40] LABS: Albumin 2.8 g/dL (3.4-5.0); BUN/Creatinine Ratio 24.2; Calcium 8.9 mg/dL (8.5-10.1)
[2022-05-07 07:42] LABS: Bilirubin, Total 3.8 mg/dL (0.2-1.0); Total Protein 6.9 g/dL (6.4-8.2)
[2022-05-07] MEDS ORDERED: POTASSIUM EFFERVESENT TAB 25 MEQ GT ONE (09:15)
[2022-05-07] MEDS: MULTIPLE VITAMIN TAB PO SCH (11:16)
[2022-05-07] MEDS: SPIRONOLACTONE 25 MG TAB PO SCH (11:16)
[2022-05-07] MEDS: THIAMINE HCL 100 MG TAB PO SCH (11:17)
[2022-05-07] MEDS: PANTOPRAZOLE 40 MG TAB PO SCH (11:17)
[2022-05-07] MEDS: FUROSEMIDE 40 MG TAB PO SCH (11:17)
[2022-05-07] MEDS: LORazepam 0.5 MG TAB PO PRN ×3 (11:43→21:40)
[2022-05-08 05:00] VITALS: BP 92/50
[2022-05-08 05:53] LABS: Basophils # (auto) 0 10 ^3/uL (0-0.2); Basophils % (auto) 0.4 % (0.0-2.0); Eosinophils # (auto) 0.1 10 ^3/uL (0-0.8); Eosinophils % (auto) 1.9 % (0.0-7.0); Hemoglobin 11.1 g/dL (12.2-16.2); Lymphocytes # (auto) 1.6 10 ^3/uL (0.4-5.4); Lymphocytes % (auto) 30.9 % (10.0-50.0); Mean Corpuscular Hemoglobin 33.4 pg (28.0-32.0); Mean Corpuscular Hgb Conc. 33.5 g/dL (32.0-36.0); Mean Corpuscular Volume 99.6 fL (80.0-100.0); Monocytes # (auto) 0.5 10 ^3/uL (0-1.3); Neutrophils % (auto) 56.8 % (37.0-80.0); Nucleated Red Blood Cells % 0.1 %; Red Blood Cells 3.31 10^6/uL (4.0-5.20); Red Cell Distribution Width 16.3 % (11.8-14.3); White Blood Cell 5.2 10^3/uL (4.4-10.8)
[2022-05-08] MEDS: LACTULOSE 20Gm/30ML SOLN PO SCH ×3 (06:00→10:20)
[2022-05-08 06:23] LABS: Albumin 2.6 g/dL (3.4-5.0); BUN/Creatinine Ratio 19.2; Potassium 3.4 mmol/L (3.5-5.1)
[2022-05-08 06:26] LABS: Total Protein 6.8 g/dL (6.4-8.2)
[2022-05-08 08:00] VITALS: BP 119/66
[2022-05-08 09:00] VITALS: BP 119/66
[2022-05-08] MEDS: SPIRONOLACTONE 25 MG TAB PO SCH (10:19)
[2022-05-08] MEDS: FUROSEMIDE 40 MG TAB PO SCH (10:19)
[2022-05-08] MEDS: MULTIPLE VITAMIN TAB PO SCH (10:19)
[2022-05-08] MEDS: PANTOPRAZOLE 40 MG TAB PO SCH (10:19)
[2022-05-08] MEDS: THIAMINE HCL 100 MG TAB PO SCH (10:20)
[2022-05-08] MEDS: LORazepam 0.5 MG TAB PO PRN (10:26)
[2022-05-08] MEDS: ONDANSETRON HCL 4 MG/2 ML VIAL IV PRN ×2 (10:27→14:42)
[2022-05-08] MEDS: ACETAMINOPHEN 500 MG TAB PO PRN (10:39)
[2022-05-08] MEDS ORDERED: FURO40TA4 PO (12:30)
[2022-05-08] MEDS ORDERED: LACT10SO3 PO ×3 (12:30→12:32)
[2022-05-08] MEDS ORDERED: THIA100T10 PO (12:30)
[2022-05-08] MEDS ORDERED: SPIR25TA PO (12:30)
[2022-05-08] MEDS ORDERED: MELA3TAB27 PO (12:30)
[2022-05-08] MEDS ORDERED: ACAM1TAB4 OR (12:32)
[2022-05-08] MEDS ORDERED: MELA3TAB14 PO (12:33)
[2022-05-08 13:00] VITALS: BP_SYST 119; BP_SYST 95; BP_DIAS 54; BP_DIAS 66
[2022-05-08 14:15] VITALS: BP 119/71
[2022-05-10 10:03] LABS: Hepatitis C Antibody Negative (Negative)
== END 2022-05-08 16:00 | disposition home or self-care (01) | DRG 280 ==
LOC: ER 16:54 → EDBD 16:54 → OVERFLOW 05-05 03:40 → EAST 05-05 08:20
PROVIDERS: ADMIT Nurse Practitioner; ATTEND Student in an Organized Health Care Education/Training Program
DX: K70.31 Alcoholic cirrhosis of liver with ascites (principal); E87.6 Hypokalemia; F10.230 Alcohol dependence with withdrawal, uncomplicated; Z20.822 Contact with and (suspected) exposure to COVID-19; G47.00 Insomnia, unspecified; M79.7 Fibromyalgia; Z88.5 Allergy status to narcotic agent; Z88.6 Allergy status to analgesic agent; Z91.199 Patient's noncompliance with other medical treatment and regimen due to unspecified reason; Y90.9 Presence of alcohol in blood, level not specified
CPT/HCPCS: 36415; 71045; 80053; 82140; 83690; 83880; 84484; 85025; 85610; 85730; 86803; 87081; 87340; 87426; 96361; 96365; 96367; 96375; 97110; 97116; 97163; 97530; G0378; J0696; J1885; J2405

== ENCOUNTER 2023-06-14 07:32 | Inpatient (IN) | payer MEDICAID ==
[~2023-06-14] VITALS: Ht 167.6 cm; Wt 72.8 kg
[~2023-06-14 07:32] MED LIST changes: +ACAM1TAB OR; +CYCL-837 PO; +LACT10SO3 PO; +MELA3TAB12 PO; +MELA3TAB27 PO; +NAP500T PO; +ONDA-144 PO; +SPIR25TA PO; +THIA100T10 PO
[2023-06-14 08:30] VITALS: PULSE 102; RESP 20; O2SAT 94
[2023-06-14 08:44] LABS: Basophils # (auto) 0 10 ^3/uL (0-0.2); Eosinophils # (auto) 0 10 ^3/uL (0-0.8); Hemoglobin 12.1 g/dL (12.2-16.2); Nucleated Red Blood Cells % 0.1 %; Red Blood Cells 3.31 10^6/uL (4.0-5.20); White Blood Cell 11.8 10^3/uL (4.4-10.8)
[2023-06-14 08:46] LABS: Basophils % (auto) 0.4 % (0.0-2.0); Eosinophils % (auto) 0.1 % (0.0-7.0); Lymphocytes % (auto) 8.1 % (10.0-50.0); Mean Corpuscular Hemoglobin 36.6 pg (28.0-32.0); Mean Corpuscular Hgb Conc. 34.6 g/dL (32.0-36.0); Mean Corpuscular Volume 105.7 fL (80.0-100.0); Monocytes # (auto) 0.9 10 ^3/uL (0-1.3); Monocytes % (auto) 7.3 % (0.0-12.0); Neutrophils # (auto) 9.9 10 ^3/uL (1.6-8.6); Neutrophils % (auto) 84.1 % (37.0-80.0); Red Cell Distribution Width 15.8 % (11.8-14.3)
[2023-06-14 09:01] LABS: Carbon Dioxide 22 mmol/L (20-30); Glucose 114 mg/dL (74-106); Lipase 45 U/L (12-53)
[2023-06-14 09:02] LABS: Alkaline Phosphatase 258 U/L (46-116); Anion Gap 14 (5-15); Calcium 8.1 mg/dL (8.7-10.4); Chloride 91 mmol/L (98-107); Potassium 2.8 mmol/L (3.5-5.1); Sodium 127 mmol/L (136-145)
[2023-06-14 09:03] LABS: Bilirubin, Total 34.2 mg/dL (0.2-1.0)
[2023-06-14 09:05] LABS: Alanine Aminotransferase 33 U/L (7-40); Albumin 2.6 g/dL (3.2-4.8); Aspartate Aminotransferase 206 U/L (13-40); Total Protein 7.1 g/dL (5.7-8.2)
[2023-06-14 09:13] LABS: Blood Urea Nitrogen < 5 mg/dL (9-23)
[2023-06-14 09:20] LABS: Lactic Acid w/Reflex 6.8 mmol/L (0.4-2.0)
[2023-06-14 09:38] LABS: Blood Alcohol 197.9 mg/dL (<10)
[2023-06-14 10:47] LABS: INR 2.58 (0.9-1.15); Partial Thromboplastin Time 63.5 SEC (24.5-34.5); Prothrombin Time 25.5 sec (9.3-11.8)
[2023-06-14 11:38] VITALS: PULSE 112; RESP 16; O2SAT 97
[2023-06-14] MEDS ORDERED: MORPHINE SULFATE INJ 2 MG/ml SYRG IV PRN ×2 (12:15→12:30)
[2023-06-14] MEDS ORDERED: DOCUSATE SOD 100 MG CAP PO PRN (12:15)
[2023-06-14] MEDS ORDERED: DEXTROSE (50%) 50ML SYRG IV PRN (12:30)
[2023-06-14] MEDS ORDERED: NITROGLYCERIN 0.4 MG SL TAB SL PRN (12:30)
[2023-06-14] MEDS: SPIRONOLACTONE 25 MG TAB PO ONE (13:10)
[2023-06-14] MEDS: POTASSIUM EFFERVESENT TAB 25 MEQ PO ONE (13:10)
[2023-06-14] MEDS: LACTULOSE 20Gm/30ML SOLN PO ONE (13:10)
[2023-06-14] MEDS: ALBUMIN 25% 100 ML IV SCH (13:14)
[2023-06-14] MEDS: FUROSEMIDE 20 MG/2 ML VIAL IV ONE (13:14)
[2023-06-14] MEDS: cefTRIAXone 2GM/50ML D5W 50 ML IV ONE (14:33)
[2023-06-14] MEDS: ONDANSETRON HCL 4 MG/2 ML VIAL IV PRN (14:40)
[2023-06-14 15:17] LABS: Urine Amorphous Crystal FEW /hpf (None Seen); Urine Bacteria MANY /hpf (None Seen); Urine Blood 2+ /uL (Negative); Urine Clarity HAZY (Clear); Urine Color Yellow (Yellow); Urine Mucus FEW (None Seen); Urine Protein, UAD Negative (Negative); Urine Specific Gravity 1.008 (1.001-1.035); Urine Urobilinogen Normal (Negative); Urine WBC 9 /hpf (0 - 5); Urine pH 7.5 (5.0-8.0)
[2023-06-14 15:27] LABS: Amphetamine Screen, Urine Neg (NEGATIVE); Barbiturate Scree,Urine Neg (NEGATIVE); Benzodiazephine Screen, Urine Neg (NEGATIVE)
[2023-06-14 15:28] LABS: Cannabinoid Screen, Urine Neg (NEGATIVE); Cocaine Screen, Urine Neg (NEGATIVE); Opiate Scree,Urine Neg (NEGATIVE); Phencyclidine Screen, Urine Neg (NEGATIVE)
[2023-06-14] MEDS: ACCU-CHEK COMFORT CURVE STRIP VI SCH (17:55)
[2023-06-14] MEDS: FUROSEMIDE 20 MG/2 ML VIAL IV SCH (18:00)
[2023-06-14] MEDS: FOLIC ACID 1 MG, MAGNESIUM SULF SDV 50% 8 MEQ, MULTIPLE VITAMIN 10 ML, THIAMINE INJ 100... INJ SCH (18:01)
[2023-06-14] MEDS: LACTULOSE 20Gm/30ML SOLN PO SCH (18:05)
[2023-06-14] MEDS: LORazepam 2MG/ML-1ML VIAL IV PRN (18:11)
[2023-06-14 19:44] VITALS: PULSE 111; RESP 29; O2SAT 96
[2023-06-15] VITALS (9 sets, daily range): BP systolic 90–113; BP diastolic 40–60; PULSE 63–117; RESP 18–22; TEMP 97.3–99.8; O2SAT 93–100
[2023-06-15 05:54] LABS: Basophils # (auto) 0 10 ^3/uL (0-0.2); Basophils % (auto) 0.3 % (0.0-2.0); Eosinophils # (auto) 0 10 ^3/uL (0-0.8); Monocytes # (auto) 0.7 10 ^3/uL (0-1.3); Neutrophils # (auto) 7.1 10 ^3/uL (1.6-8.6); White Blood Cell 8.7 10^3/uL (4.4-10.8)
[2023-06-15 05:56] LABS: Eosinophils % (auto) 0.3 % (0.0-7.0); Hematocrit 31.1 % (36.0-46.0); Hemoglobin 10.9 g/dL (12.2-16.2); Lymphocytes # (auto) 0.9 10 ^3/uL (0.4-5.4); Lymphocytes % (auto) 10.2 % (10.0-50.0); Mean Corpuscular Hemoglobin 37.9 pg (28.0-32.0); Mean Corpuscular Hgb Conc. 35.1 g/dL (32.0-36.0); Neutrophils % (auto) 81.2 % (37.0-80.0); Nucleated Red Blood Cells % 0.2 %; Red Blood Cells 2.88 10^6/uL (4.0-5.20); Red Cell Distribution Width 16.5 % (11.8-14.3)
[2023-06-15 06:11] LABS: Alkaline Phosphatase 195 U/L (46-116); Calcium 8.1 mg/dL (8.5-10.1); Chloride 96 mmol/L (98-107)
[2023-06-15 06:14] LABS: Alanine Aminotransferase 34 U/L (7-40); Albumin 2.7 g/dL (3.2-4.8); Anion Gap 12 (5-15); Aspartate Aminotransferase 176 U/L (13-40); Carbon Dioxide 25 mmol/L (20-30); Glucose 70 mg/dL (74-106); Total Protein 6.2 g/dL (5.7-8.2)
[2023-06-15 06:23] LABS: Bilirubin, Total 32.3 mg/dL (0.2-1.0)
[2023-06-15 06:25] LABS: BUN/Creatinine Ratio 7.5 (10.0-20.0); Blood Urea Nitrogen < 5 mg/dL (9-23); Sodium 133 mmol/L (136-145)
[2023-06-15] MEDS ORDERED: ASCO500T16 PO (08:31)
[2023-06-15] MEDS ORDERED: FOLI-119 PO (08:31)
[2023-06-15] MEDS ORDERED: ACET250T20 PO (08:31)
[2023-06-15] MEDS: PANTOPRAZOLE 40 MG/10 ML VIAL INJ IV SCH (09:00)
[2023-06-15] MEDS: cefTRIAXone 2GM/50ML D5W 50 ML IV SCH (09:00)
[2023-06-15] MEDS: SPIRONOLACTONE 25 MG TAB PO SCH (09:01)
[2023-06-15] MEDS: POTASSIUM EFFERVESENT TAB 25 MEQ PO ONE (14:13)
[2023-06-15] MEDS: metroNIDAZOLE 500MG/100ML 100 ML IV SCH (14:13)
[2023-06-15] MEDS: FOLIC ACID 1 MG, MULTIPLE VITAMIN 10 ML, MAGNESIUM SULF SDV 50% 8 MEQ, THIAMINE INJ 100... INJ SCH (18:09)
[2023-06-15] MEDS: ACCU-CHEK COMFORT CURVE STRIP VI SCH (18:21)
[2023-06-15] MEDS ORDERED: MULT-119 OR (18:24)
[2023-06-15] MEDS ORDERED: HYDR1TAB97 PO (18:24)
[2023-06-16] VITALS (24 sets, daily range): BP systolic 89–112; BP diastolic 39–72; PULSE 102–123; RESP 15–45; TEMP 98.9–101; O2SAT 89–99
[2023-06-16 06:08] LABS: Basophils # (auto) 0 10 ^3/uL (0-0.2); Basophils % (auto) 0.4 % (0.0-2.0); Eosinophils # (auto) 0.1 10 ^3/uL (0-0.8); Lymphocytes # (auto) 0.8 10 ^3/uL (0.4-5.4); Mean Corpuscular Volume 109.3 fL (80.0-100.0); Monocytes # (auto) 0.8 10 ^3/uL (0-1.3); Nucleated Red Blood Cells % 0.1 %
[2023-06-16 06:12] LABS: Eosinophils % (auto) 1.1 % (0.0-7.0); Hematocrit 27.2 % (36.0-46.0); Hemoglobin 9.3 g/dL (12.2-16.2); Lymphocytes % (auto) 9.5 % (10.0-50.0); Mean Corpuscular Hemoglobin 37.5 pg (28.0-32.0); Mean Corpuscular Hgb Conc. 34.3 g/dL (32.0-36.0); Monocytes % (auto) 9.1 % (0.0-12.0); Neutrophils # (auto) 6.9 10 ^3/uL (1.6-8.6); Neutrophils % (auto) 79.9 % (37.0-80.0); Red Blood Cells 2.49 10^6/uL (4.0-5.20); Red Cell Distribution Width 16.7 % (11.8-14.3); White Blood Cell 8.6 10^3/uL (4.4-10.8)
[2023-06-16 06:31] LABS: Alkaline Phosphatase 164 U/L (46-116); Chloride 99 mmol/L (98-107); Potassium 2.8 mmol/L (3.5-5.1); Sodium 134 mmol/L (136-145)
[2023-06-16 06:38] LABS: Alanine Aminotransferase 27 U/L (7-40); Albumin 2.6 g/dL (3.2-4.8); Anion Gap 7 (5-15); Aspartate Aminotransferase 135 U/L (13-40); BUN/Creatinine Ratio 9.4 (10.0-20.0); Blood Urea Nitrogen 10 mg/dL (9-23); Carbon Dioxide 28 mmol/L (20-30); Glucose 119 mg/dL (74-106); Total Protein 5.7 g/dL (5.7-8.2)
[2023-06-16 06:43] LABS: Bilirubin, Total 33.9 mg/dL (0.2-1.0)
[2023-06-16] MEDS: rifAXIMin 550 MG TAB PO SCH (12:18)
[2023-06-16] MEDS: POTASSIUM CHLORIDE 40 MEQ, LIDOCAINE 1% (LOCAL ANESTH.) 4 ML in SODIUM CHL 0.9% 250 ML IV ONE (13:30)
[2023-06-16] MEDS: KETOROLAC TROMETH 30 MG/ML 1ML VIAL IV ONE (14:40)
[2023-06-17] VITALS (47 sets, daily range): BP systolic 81–130; BP diastolic 32–77; PULSE 92–116; RESP 16–36; TEMP 98–100; O2SAT 89–100
[2023-06-17] MEDS: HYDROcodone-ACET 5/325MG TAB PO PRN (04:03)
[2023-06-17 04:55] LABS: Basophils # (auto) 0 10 ^3/uL (0-0.2); Eosinophils # (auto) 0.1 10 ^3/uL (0-0.8); Hemoglobin 9.8 g/dL (12.2-16.2); Lymphocytes # (auto) 0.5 10 ^3/uL (0.4-5.4); Red Blood Cells 2.57 10^6/uL (4.0-5.20)
[2023-06-17 05:01] LABS: Basophils % (auto) 0.3 % (0.0-2.0); Lymphocytes % (auto) 5.9 % (10.0-50.0); Mean Corpuscular Hemoglobin 38.2 pg (28.0-32.0); Mean Corpuscular Hgb Conc. 35.1 g/dL (32.0-36.0); Mean Corpuscular Volume 108.9 fL (80.0-100.0); Monocytes # (auto) 0.9 10 ^3/uL (0-1.3); Neutrophils # (auto) 6.9 10 ^3/uL (1.6-8.6); Neutrophils % (auto) 81.8 % (37.0-80.0); Nucleated Red Blood Cells % 0.2 %; Red Cell Distribution Width 16.3 % (11.8-14.3); White Blood Cell 8.5 10^3/uL (4.4-10.8)
[2023-06-17 05:10] LABS: Alkaline Phosphatase 165 U/L (46-116); Calcium 8.4 mg/dL (8.7-10.4); Chloride 100 mmol/L (98-107); INR 3.09 (0.9-1.15); Prothrombin Time 30.1 sec (9.3-11.8); Sodium 134 mmol/L (136-145)
[2023-06-17 05:18] LABS: Partial Thromboplastin Time 75.1 SEC (24.5-34.5)
[2023-06-17 05:27] LABS: Alanine Aminotransferase 24 U/L (7-40); Albumin 2.5 g/dL (3.2-4.8); Anion Gap 6 (5-15); Aspartate Aminotransferase 106 U/L (13-40); BUN/Creatinine Ratio 9.1 (10.0-20.0); Bilirubin, Total 35.4 mg/dL (0.2-1.0); Blood Urea Nitrogen 8 mg/dL (9-23); Carbon Dioxide 28 mmol/L (20-30); Glucose 122 mg/dL (74-106); Total Protein 6.1 g/dL (5.7-8.2)
[2023-06-17 05:28] LABS: Potassium 2.4 mmol/L (3.5-5.1)
[2023-06-17] MEDS: MIDODRINE HCL 10 MG TAB PO SCH (05:30)
[2023-06-17] MEDS: MIDODRINE HCL 10 MG TAB PO ONE (05:47)
[2023-06-17] MEDS: POTASSIUM CHL 20 Meq TABLET PO ONE (05:48)
[2023-06-17] MEDS: POTASSIUM CHL 20MEQ/100ML 200 ML IV ONE (05:55)
[2023-06-17] MEDS ORDERED: MIDODRINE HCL 10 MG TAB PO SCH (06:00)
[2023-06-17] MEDS: POTASSIUM CHL 20MEQ/100ML 100 ML IV SCH ×2 (06:29→22:21)
[2023-06-17] MEDS ORDERED: POTASSIUM CHL 20 Meq TABLET PO SCH (10:00)
[2023-06-17] MEDS: POTASSIUM EFFERVESENT TAB 25 MEQ ONE (13:55)
[2023-06-17] MEDS: AZITHROMYCIN 500MG/ 250ML 250 ML IV ONE (14:24)
[2023-06-17] MEDS: POTASSIUM EFFERVESENT TAB 25 MEQ GT ONE (14:39)
[2023-06-17] MEDS: phytonadione 10 MG in SODIUM CHL 0.9% 50 ML IV ONE (14:56)
[2023-06-17] MEDS: LACTULOSE 20Gm/30ML SOLN PO ONE (19:39)
[2023-06-17] MEDS ORDERED: POTASSIUM CHL 20MEQ/100ML 100 ML IV ONE (22:05)
[2023-06-17] MEDS: SPIRONOLACTONE 25 MG TAB PO SCH (22:23)
[2023-06-18] VITALS (21 sets, daily range): BP systolic 82–108; BP diastolic 45–88; PULSE 89–144; RESP 16–33; TEMP 97.9–99.9; O2SAT 91–99
[2023-06-18 05:25] LABS: Alkaline Phosphatase 160 U/L (46-116); Chloride 103 mmol/L (98-107); Potassium 3.1 mmol/L (3.5-5.1); Sodium 137 mmol/L (136-145)
[2023-06-18 06:47] LABS: Alanine Aminotransferase 21 U/L (7-40)
[2023-06-18 06:52] LABS: Calcium 8.4 mg/dL (8.7-10.4)
[2023-06-18 07:09] LABS: Albumin 2.5 g/dL (3.2-4.8); Anion Gap 8 (5-15); Aspartate Aminotransferase 83 U/L (13-40); Blood Urea Nitrogen 7 mg/dL (9-23); Carbon Dioxide 26 mmol/L (20-30); Glucose 112 mg/dL (74-106); Total Protein 5.6 g/dL (5.7-8.2)
[2023-06-18 07:12] LABS: Bilirubin, Total 33.9 mg/dL (0.2-1.0)
[2023-06-18] MEDS: POTASSIUM EFFERVESENT TAB 25 MEQ GT SCH (10:00)
[2023-06-18] MEDS: AZITHROMYCIN 500MG/ 250ML 250 ML IV SCH (10:05)
[2023-06-18] MEDS: LACTULOSE 20Gm/30ML SOLN PO SCH (12:00)
[2023-06-18] MEDS: POTASSIUM EFFERVESENT TAB 25 MEQ GT ONE (15:45)
[2023-06-19] VITALS (16 sets, daily range): BP systolic 88–104; BP diastolic 46–67; PULSE 87–105; RESP 15–33; TEMP 97.2–99.8; O2SAT 94–100
[2023-06-19 04:42] LABS: Basophils # (auto) 0 10 ^3/uL (0-0.2); Basophils % (auto) 0.3 % (0.0-2.0); Lymphocytes # (auto) 0.9 10 ^3/uL (0.4-5.4); White Blood Cell 10.5 10^3/uL (4.4-10.8)
[2023-06-19 04:45] LABS: Eosinophils # (auto) 0.1 10 ^3/uL (0-0.8); Eosinophils % (auto) 1.2 % (0.0-7.0); Hematocrit 29.7 % (36.0-46.0); Hemoglobin 10.3 g/dL (12.2-16.2); Lymphocytes % (auto) 8.2 % (10.0-50.0); Mean Corpuscular Hemoglobin 38.2 pg (28.0-32.0); Mean Corpuscular Hgb Conc. 34.6 g/dL (32.0-36.0); Mean Corpuscular Volume 110.4 fL (80.0-100.0); Monocytes # (auto) 1.4 10 ^3/uL (0-1.3); Monocytes % (auto) 13.5 % (0.0-12.0); Neutrophils % (auto) 76.8 % (37.0-80.0); Nucleated Red Blood Cells % 0.2 %; Red Blood Cells 2.69 10^6/uL (4.0-5.20); Red Cell Distribution Width 16.7 % (11.8-14.3)
[2023-06-19 04:56] LABS: INR 2.98 (0.9-1.15); Prothrombin Time 29.1 sec (9.3-11.8)
[2023-06-19 05:00] LABS: Alkaline Phosphatase 160 U/L (46-116); Calcium 8.5 mg/dL (8.7-10.4); Chloride 104 mmol/L (98-107); Potassium 2.7 mmol/L (3.5-5.1); Sodium 138 mmol/L (136-145)
[2023-06-19 05:12] LABS: Bilirubin, Total 33.3 mg/dL (0.2-1.0)
[2023-06-19 05:20] LABS: Alanine Aminotransferase 25 U/L (7-40); Albumin 2.4 g/dL (3.2-4.8); Anion Gap 7 (5-15); Aspartate Aminotransferase 66 U/L (13-40); BUN/Creatinine Ratio 7.9 (10.0-20.0); Blood Urea Nitrogen 8 mg/dL (9-23); Carbon Dioxide 27 mmol/L (20-30); Glucose 114 mg/dL (74-106); Total Protein 5.8 g/dL (5.7-8.2)
[2023-06-19] MEDS: POTASSIUM CHL 20MEQ/100ML 100 ML IV SCH (07:35)
[2023-06-19] MEDS: MULTIPLE VITAMIN TAB PO SCH (09:37)
[2023-06-19] MEDS: THIAMINE 100mg/ml INJ (200mg/2ml VIAL) IV SCH (09:37)
[2023-06-20] VITALS (24 sets, daily range): BP systolic 77–110; BP diastolic 40–72; PULSE 80–101; RESP 15–34; TEMP 98.2–99.1; O2SAT 95–100
[2023-06-20 05:40] LABS: Chloride 105 mmol/L (98-107); Potassium 2.8 mmol/L (3.5-5.1); Sodium 139 mmol/L (136-145)
[2023-06-20 05:41] LABS: Calcium 8.9 mg/dL (8.7-10.4)
[2023-06-20 06:01] LABS: Basophils # (auto) 0.1 10 ^3/uL (0-0.2); Basophils % (auto) 0.8 % (0.0-2.0); Eosinophils # (auto) 0.1 10 ^3/uL (0-0.8); Eosinophils % (auto) 1.6 % (0.0-7.0); Hematocrit 29.6 % (36.0-46.0); Hemoglobin 10.1 g/dL (12.2-16.2); Lymphocytes % (auto) 11.4 % (10.0-50.0); Mean Corpuscular Hemoglobin 37.5 pg (28.0-32.0); Mean Corpuscular Hgb Conc. 34.1 g/dL (32.0-36.0); Monocytes # (auto) 1.3 10 ^3/uL (0-1.3); Monocytes % (auto) 14.5 % (0.0-12.0); Neutrophils # (auto) 6.3 10 ^3/uL (1.6-8.6); Neutrophils % (auto) 71.7 % (37.0-80.0); Nucleated Red Blood Cells % 0.3 %; Red Blood Cells 2.69 10^6/uL (4.0-5.20); Red Cell Distribution Width 16.9 % (11.8-14.3); White Blood Cell 8.8 10^3/uL (4.4-10.8)
[2023-06-20 06:56] LABS: Anion Gap 7 (5-15); BUN/Creatinine Ratio 6.5 (10.0-20.0); Blood Urea Nitrogen 7 mg/dL (9-23); Carbon Dioxide 27 mmol/L (20-30); Glucose 97 mg/dL (74-106)
[2023-06-20] MEDS: LACTULOSE 10g/15ml SOLN 473ML PR ONE (10:48)
[2023-06-20] MEDS: POTASSIUM CHLORIDE 40 MEQ, LIDOCAINE 1% (LOCAL ANESTH.) 4 ML in SODIUM CHL 0.9% 250 ML IV ONE (10:49)
[2023-06-20] MEDS: OCTREOTIDE ACETATE 100 MCG/ML VL SUBCUT SCH (14:28)
[2023-06-20] MEDS: methylPREDNISolone SOD SUCC 40 MG/ML VL IV SCH (22:34)
[2023-06-21] VITALS (20 sets, daily range): BP systolic 72–101; BP diastolic 35–70; PULSE 61–92; RESP 12–35; TEMP 97.8–99.3; O2SAT 91–100
[2023-06-21 05:41] LABS: Alkaline Phosphatase 159 U/L (46-116); Calcium 9.1 mg/dL (8.7-10.4); Chloride 102 mmol/L (98-107); Potassium 3.3 mmol/L (3.5-5.1); Sodium 136 mmol/L (136-145)
[2023-06-21 05:43] LABS: Alanine Aminotransferase 26 U/L (7-40); Albumin 2.4 g/dL (3.2-4.8); Anion Gap 10 (5-15); Aspartate Aminotransferase 51 U/L (13-40); BUN/Creatinine Ratio 7.3 (10.0-20.0); Blood Urea Nitrogen 9 mg/dL (9-23); Carbon Dioxide 24 mmol/L (20-30); Glucose 186 mg/dL (74-106)
[2023-06-21 05:52] LABS: Bilirubin, Total 32.9 mg/dL (0.2-1.0)
[2023-06-21] MEDS: POTASSIUM EFFERVESENT TAB 25 MEQ GT ONE (09:33)
[2023-06-21] MEDS: LACTULOSE 20Gm/30ML SOLN PO SCH (10:00)
[2023-06-22] VITALS (22 sets, daily range): BP systolic 82–118; BP diastolic 40–82; PULSE 62–92; RESP 14–29; TEMP 97.6–98.3; O2SAT 89–99
[2023-06-22 06:07] LABS: Hematocrit 32.3 % (36.0-46.0); Hemoglobin 11.2 g/dL (12.2-16.2)
[2023-06-22 06:08] LABS: Calcium 9.4 mg/dL (8.7-10.4); Chloride 107 mmol/L (98-107); Potassium 3.4 mmol/L (3.5-5.1); Sodium 141 mmol/L (136-145)
[2023-06-22 06:48] LABS: Anion Gap 8 (5-15); BUN/Creatinine Ratio 10.6 (10.0-20.0); Blood Urea Nitrogen 14 mg/dL (9-23); Carbon Dioxide 26 mmol/L (20-30); Glucose 192 mg/dL (74-106)
[2023-06-22] MEDS: POTASSIUM EFFERVESENT TAB 25 MEQ PO SCH (10:14)
[2023-06-23] VITALS (12 sets, daily range): BP systolic 95–118; BP diastolic 38–80; PULSE 64–105; RESP 12–29; TEMP 97.6–98.7; O2SAT 91–99
[2023-06-23 05:17] LABS: Chloride 106 mmol/L (98-107); Potassium 3.6 mmol/L (3.5-5.1); Sodium 139 mmol/L (136-145)
[2023-06-23 05:19] LABS: Calcium 9.4 mg/dL (8.7-10.4)
[2023-06-23 05:46] LABS: Anion Gap 7 (5-15); BUN/Creatinine Ratio 12.6 (10.0-20.0); Blood Urea Nitrogen 13 mg/dL (9-23); Carbon Dioxide 26 mmol/L (20-30); Glucose 176 mg/dL (74-106)
[2023-06-23] MEDS: FUROSEMIDE 20 MG/2 ML VIAL IV SCH (09:16)
[2023-06-23] MEDS: PANTOPRAZOLE 40 MG TAB PO SCH (09:17)
[2023-06-23] MEDS: THIAMINE HCL 100 MG TAB PO SCH (09:18)
[2023-06-24] VITALS (8 sets, daily range): BP systolic 95–114; BP diastolic 57–75; PULSE 77–94; RESP 16–20; TEMP 97.9–98.5; O2SAT 92–98
[2023-06-24 05:15] LABS: Chloride 106 mmol/L (98-107); Potassium 3.2 mmol/L (3.5-5.1); Sodium 139 mmol/L (136-145)
[2023-06-24 05:16] LABS: Calcium 9.1 mg/dL (8.7-10.4)
[2023-06-24 05:22] LABS: Anion Gap 6 (5-15); BUN/Creatinine Ratio 20.4 (10.0-20.0); Blood Urea Nitrogen 22 mg/dL (9-23); Carbon Dioxide 27 mmol/L (20-30); Glucose 175 mg/dL (74-106)
[2023-06-24] MEDS: POTASSIUM CHL 20 Meq TABLET PO ONE (14:54)
[2023-06-24] MEDS ORDERED: InsuLIN REG 1unit/0.01ml Soln (100units/ml) SC ONE (16:45)
[2023-06-25] VITALS (7 sets, daily range): BP systolic 80–129; BP diastolic 25–76; PULSE 66–84; RESP 17–71; TEMP 97.8–98.5; O2SAT 91–99
[2023-06-26] VITALS (8 sets, daily range): BP systolic 97–122; BP diastolic 59–76; PULSE 76–89; RESP 12–20; TEMP 96.7–98.7; O2SAT 94–99
[2023-06-27] VITALS (7 sets, daily range): BP systolic 97–146; BP diastolic 61–82; PULSE 63–83; RESP 15–20; TEMP 97.5–98.5; O2SAT 95–99
[2023-06-27] MEDS: LACTULOSE 20Gm/30ML SOLN PO SCH (11:41)
[2023-06-28] VITALS (8 sets, daily range): BP systolic 101–133; BP diastolic 49–81; PULSE 68–89; RESP 16–20; TEMP 97.6–98.6; O2SAT 96–100
[2023-06-28 05:51] LABS: Alkaline Phosphatase 190 U/L (46-116); Basophils # (auto) 0 10 ^3/uL (0-0.2); Basophils % (auto) 0.2 % (0.0-2.0); Chloride 102 mmol/L (98-107); Eosinophils # (auto) 0 10 ^3/uL (0-0.8); Hematocrit 37.2 % (36.0-46.0); Hemoglobin 12.5 g/dL (12.2-16.2); Lymphocytes # (auto) 0.3 10 ^3/uL (0.4-5.4); Lymphocytes % (auto) 1.2 % (10.0-50.0); Mean Corpuscular Hemoglobin 37.5 pg (28.0-32.0); Mean Corpuscular Hgb Conc. 33.6 g/dL (32.0-36.0); Mean Corpuscular Volume 111.8 fL (80.0-100.0); Monocytes # (auto) 1.4 10 ^3/uL (0-1.3); Monocytes % (auto) 6.5 % (0.0-12.0); Neutrophils # (auto) 20.4 10 ^3/uL (1.6-8.6); Neutrophils % (auto) 92.1 % (37.0-80.0); Potassium 3.5 mmol/L (3.5-5.1); Red Blood Cells 3.33 10^6/uL (4.0-5.20); Red Cell Distribution Width 17.8 % (11.8-14.3); White Blood Cell 22.2 10^3/uL (4.4-10.8)
[2023-06-28 06:06] LABS: Alanine Aminotransferase 121 U/L (7-40); Albumin 2.4 g/dL (3.2-4.8); Anion Gap 6 (5-15); Aspartate Aminotransferase 160 U/L (13-40); BUN/Creatinine Ratio 31.6 (10.0-20.0); Bilirubin, Total 34.8 mg/dL (0.2-1.0); Blood Urea Nitrogen 25 mg/dL (9-23); Carbon Dioxide 25 mmol/L (20-30); Glucose 215 mg/dL (74-106); Total Protein 6.2 g/dL (5.7-8.2)
[2023-06-28 06:11] LABS: Sodium 133 mmol/L (136-145)
[2023-06-28] MEDS: IOHEXOL 300 MG/ML 100ML BOTTLE IJ ONE (11:59)
[2023-06-28] MEDS: methylPREDNISolone SOD SUCC 40 MG/ML VL IV SCH (14:24)
[2023-06-28] MEDS: ALPRAZolam 0.25 MG TAB PO PRN (16:00)
[2023-06-28] MEDS: FUROSEMIDE 20 MG/2 ML VIAL IV SCH (22:50)
[2023-06-29] VITALS (8 sets, daily range): BP systolic 97–117; BP diastolic 60–71; PULSE 68–94; RESP 14–18; TEMP 97.9–98.4; O2SAT 96–100
[2023-06-29 05:18] LABS: Chloride 101 mmol/L (98-107); Potassium 4.3 mmol/L (3.5-5.1); Sodium 131 mmol/L (136-145)
[2023-06-29 05:21] LABS: Anion Gap 4 (5-15); Calcium 8.1 mg/dL (8.7-10.4); Carbon Dioxide 26 mmol/L (20-30)
[2023-06-29 05:28] LABS: BUN/Creatinine Ratio 31.2 (10.0-20.0); Blood Urea Nitrogen 29 mg/dL (9-23); Glucose 238 mg/dL (74-106)
[2023-06-29] MEDS: LACTULOSE 20Gm/30ML SOLN PO SCH (14:49)
[2023-06-30] VITALS (7 sets, daily range): BP systolic 102–113; BP diastolic 56–72; PULSE 76–99; RESP 17–22; TEMP 98.3–98.5; O2SAT 96–99
[2023-06-30 05:25] LABS: Basophils # (auto) 0 10 ^3/uL (0-0.2); Eosinophils # (auto) 0 10 ^3/uL (0-0.8); Hemoglobin 12.2 g/dL (12.2-16.2); Lymphocytes # (auto) 0.2 10 ^3/uL (0.4-5.4)
[2023-06-30 05:27] LABS: Basophils % (auto) 0.1 % (0.0-2.0); Hematocrit 36.1 % (36.0-46.0); Lymphocytes % (auto) 0.8 % (10.0-50.0); Mean Corpuscular Hemoglobin 38.3 pg (28.0-32.0); Mean Corpuscular Volume 112.6 fL (80.0-100.0); Monocytes # (auto) 1.4 10 ^3/uL (0-1.3); Monocytes % (auto) 6.4 % (0.0-12.0); Neutrophils # (auto) 20.4 10 ^3/uL (1.6-8.6); Neutrophils % (auto) 92.7 % (37.0-80.0); Red Cell Distribution Width 17.5 % (11.8-14.3)
[2023-06-30 05:36] LABS: INR 2.39 (0.9-1.15); Prothrombin Time 23.7 sec (9.3-11.8)
[2023-06-30 05:46] LABS: Alkaline Phosphatase 206 U/L (46-116); Chloride 102 mmol/L (98-107); Sodium 131 mmol/L (136-145)
[2023-06-30 06:09] LABS: Alanine Aminotransferase 175 U/L (7-40); Albumin 2.5 g/dL (3.2-4.8); Anion Gap 6 (5-15); Aspartate Aminotransferase 169 U/L (13-40); BUN/Creatinine Ratio 33.3 (10.0-20.0); Bilirubin, Total 36.5 mg/dL (0.2-1.0); Blood Urea Nitrogen 21 mg/dL (9-23); Carbon Dioxide 23 mmol/L (20-30); Glucose 201 mg/dL (74-106); Total Protein 6.3 g/dL (5.7-8.2)
[2023-06-30] MEDS: POTASSIUM EFFERVESENT TAB 25 MEQ PO ONE (12:05)
[2023-06-30] MEDS: FUROSEMIDE 20 MG TAB PO SCH (12:05)
[2023-07-01] VITALS (8 sets, daily range): BP systolic 94–115; BP diastolic 50–71; PULSE 73–88; RESP 15–20; TEMP 97.5–98.9; O2SAT 96–100
[2023-07-01 05:59] LABS: Chloride 100 mmol/L (98-107); Potassium 3.2 mmol/L (3.5-5.1); Sodium 130 mmol/L (136-145)
[2023-07-01 06:51] LABS: Anion Gap 6 (5-15); BUN/Creatinine Ratio 28.8 (10.0-20.0); Blood Urea Nitrogen 19 mg/dL (9-23); Calcium 7.9 mg/dL (8.7-10.4); Carbon Dioxide 24 mmol/L (20-30); Glucose 223 mg/dL (74-106); Magnesium 2.2 mg/dL (1.6-2.6)
[2023-07-01] MEDS: methylPREDNISolone SOD SUCC 40 MG/ML VL IV SCH (09:38)
[2023-07-01] MEDS: POTASSIUM EFFERVESENT TAB 25 MEQ PO ONE (09:42)
[2023-07-01] MEDS: phytonadione 10 MG in SODIUM CHL 0.9% 50 ML IV ONE (13:20)
[2023-07-01] MEDS ORDERED: DEXTROSE (50%) 50ML SYRG IV PRN (13:30)
[2023-07-01] MEDS: LACTULOSE 20Gm/30ML SOLN PO SCH (14:33)
[2023-07-01] MEDS: ACCU-CHEK COMFORT CURVE STRIP VI SCH (17:47)
[2023-07-01] MEDS: InsuLIN REG 1unit/0.01ml Soln (100units/ml) SC SCH (18:09)
[2023-07-01] MEDS: IBUPROFEN 600 MG TAB PO PRN (21:25)
[2023-07-02] VITALS (7 sets, daily range): BP systolic 91–116; BP diastolic 40–71; PULSE 81–93; RESP 16–20; TEMP 97.4–98.6; O2SAT 96–100
[2023-07-02 07:03] LABS: Chloride 100 mmol/L (98-107); Potassium 3.5 mmol/L (3.5-5.1); Sodium 132 mmol/L (136-145)
[2023-07-02 07:13] LABS: BUN/Creatinine Ratio 28.9 (10.0-20.0); Blood Urea Nitrogen 24 mg/dL (9-23); Calcium 7.9 mg/dL (8.5-10.1); Glucose 173 mg/dL (74-106)
[2023-07-02 07:39] LABS: Anion Gap 10 (5-15); Carbon Dioxide 22 mmol/L (20-30)
[2023-07-02 07:47] LABS: Magnesium 2.3 mg/dL (1.6-2.6)
[2023-07-03 00:28] VITALS: BP 112/64; PULSE 99; RESP 15; TEMP 97.2; O2SAT 96
[2023-07-03 05:00] VITALS: BP 105/58; PULSE 88; RESP 15; TEMP 97.2; O2SAT 97
[2023-07-03 05:40] LABS: Hemoglobin 13.2 g/dL (12.2-16.2); Mean Corpuscular Hgb Conc. 33.5 g/dL (32.0-36.0)
[2023-07-03 05:43] LABS: Hematocrit 39.4 % (36.0-46.0); Mean Corpuscular Hemoglobin 38.3 pg (28.0-32.0); Mean Corpuscular Volume 114.4 fL (80.0-100.0); Red Blood Cells 3.44 10^6/uL (4.0-5.20); Red Cell Distribution Width 17.7 % (11.8-14.3); White Blood Cell 28.8 10^3/uL (4.4-10.8)
[2023-07-03 05:50] LABS: Band Neutrophils % (manual) 0; Basophils % (manual) 0 (0.0-2.0); Blast Cells 0; Eosinophils % (manual) 0 (0-7); Lymphocytes % (manual) 0 (10.0-50.0); Metamyelocytes % 0; Myelocytes % 0; Promyelocytes % 0; Reactive Lymphocytes 0
[2023-07-03 05:59] LABS: Alkaline Phosphatase 297 U/L (46-116); Chloride 98 mmol/L (98-107); Potassium 3.8 mmol/L (3.5-5.1); Sodium 130 mmol/L (136-145)
[2023-07-03 06:01] LABS: Alanine Aminotransferase 275 U/L (7-40); Albumin 2.8 g/dL (3.2-4.8); Anion Gap 9 (5-15); Aspartate Aminotransferase 223 U/L (13-40); BUN/Creatinine Ratio 27.1 (10.0-20.0); Blood Urea Nitrogen 26 mg/dL (9-23); Calcium 8.3 mg/dL (8.5-10.1); Carbon Dioxide 23 mmol/L (20-30); Glucose 175 mg/dL (74-106); Total Protein 6.3 g/dL (5.7-8.2)
[2023-07-03 07:46] LABS: Monocytes % (manual) 5 (0-12)
[2023-07-03 07:47] LABS: Platelet Estimate Decreased
[2023-07-03 08:30] VITALS: RESP 18; O2SAT 96
[2023-07-03 09:00] VITALS: BP 102/56; PULSE 98; RESP 19; TEMP 98; O2SAT 98
[2023-07-03] MEDS ORDERED: FUR20T PO (10:26)
[2023-07-03] MEDS ORDERED: LACT10SO3 PO (10:26)
[2023-07-03] MEDS ORDERED: METH4PAK PO (10:26)
[2023-07-03] MEDS ORDERED: RIFA550T PO (10:26)
[2023-07-03] MEDS ORDERED: POTA-215 PO (10:26)
[2023-07-03 10:56] VITALS: BP 114/69; TEMP 36.7
[2023-07-03 12:30] VITALS: RESP 18; O2SAT 96
== END 2023-07-03 13:30 | disposition home or self-care (01) | DRG 720 ==
LOC: ER 07:32 → TELE 12:47 → TELE-WESTW 22:00 → DOU IN ICU 06-16 13:20 → TELE-EAST 06-23 10:31 → EAST 06-23 11:01
PROVIDERS: ADMIT Nurse Practitioner Family; ATTEND Nurse Practitioner Acute Care
PROC: 05HC33Z Insertion of Infusion Device into Left Basilic Vein, Percutaneous Approach (ICD-10-PCS; principal; 2023-06-17)
PROC: B54NZZA Ultrasonography of Left Upper Extremity Veins, Guidance (ICD-10-PCS; 2023-06-17)
DX: A41.9 Sepsis, unspecified organism (principal); E87.20 Acidosis, unspecified; K70.40 Alcoholic hepatic failure without coma; E43 Unspecified severe protein-calorie malnutrition; D68.9 Coagulation defect, unspecified; D69.6 Thrombocytopenia, unspecified; K76.82 Hepatic encephalopathy; E88.09 Other disorders of plasma-protein metabolism, not elsewhere classified; K52.9 Noninfective gastroenteritis and colitis, unspecified; K70.31 Alcoholic cirrhosis of liver with ascites; K76.6 Portal hypertension; N30.00 Acute cystitis without hematuria; F10.239 Alcohol dependence with withdrawal, unspecified; E16.2 Hypoglycemia, unspecified; I10 Essential (primary) hypertension; D64.9 Anemia, unspecified; E66.9 Obesity, unspecified; E87.6 Hypokalemia; I86.4 Gastric varices; J90 Pleural effusion, not elsewhere classified; K22.9 Disease of esophagus, unspecified; Z59.00 Homelessness unspecified; Z68.29 Body mass index [BMI] 29.0-29.9, adult
CPT/HCPCS: 36415; 71045; 71260; 74176; 74177; 76705; 80048; 80053; 80307; 80320; 81001; 82140; 82962; 83605; 83690; 83735; 84132; 84484; 84702; 85007; 85014; 85018; 85025; 85027; 85610; 85730; 86850; 86900; 86901; 87040; 87081; 87086; 93005; 97110; 97116; 97163; 97530; 99291; C9113; G0378; J1815; J2001; J2405; J3430; J3480; J3490; P9047